=== PATIENT | female | born 1995 | race Caucasian/White ===

== ENCOUNTER 2018-10-21 16:51 | Emergency (ER) | payer OTHER ==
[2018-10-21] MEDS: IBUPROFEN 800 MG TAB PO (18:46)
[2018-10-21] MEDS: ONDANSETRON 4 MG INJ IV (19:03)
[2018-10-21 19:39] LABS: ADD UMIC YES; UR ASCORBIC ACID NEGATIVE (NEGATIVE); UR BACTERIA FEW /HPF (NONE SEEN); UR BILIRUBIN (Dip) NEGATIVE (NEGATIVE); UR BLOOD (Dip) 2+ mg/dL (NEGATIVE); UR CLARITY SLIGHTLY CLOUDY (CLEAR); UR COLOR AMBER (YELLOW); UR GLUCOSE (Dip) NEGATIVE (NEGATIVE); UR KETONES (Dip) 1+ mg/dL (NEGATIVE); UR LEUKOCYTE ESTERASE (Dip) TRACE Leu/ul (NEGATIVE); UR MUCUS MODERATE /HPF (NONE SEEN); UR NITRITE (Dip) NEGATIVE (NEGATIVE); UR RBC 7 /HPF (0-5); UR SPECIFIC GRAVITY (Dip) 1.025 (1.003-1.030); UR SQUAMOUS EPITHELIAL CELL MODERATE /HPF (FEW); UR TOTAL PROTEIN (Dip) 1+ mg/dl (NEGATIVE); UR UROBILINOGEN (Dip) NEGATIVE (NEGATIVE); UR WBC 6 /HPF (0-5)
[2018-10-21] MEDS: morphine 2 MG INJ IV (20:00)
[2018-10-21] MEDS: METOCLOPRAMIDE 10 MG INJ IV (20:00)
== END 2018-10-21 20:56 | disposition home or self-care (01) ==
LOC: FTE 16:51
DX: R07.89 Other chest pain (principal)
CPT/HCPCS: 71046; 76705; 81001; 81025; 96374; 96375; 99285-25